=== PATIENT | male | born 1980 | race Caucasian/White ===

== ENCOUNTER 2017-07-21 07:32 | Emergency (ER) | payer BC ==
[2017-07-21 07:50] VITALS: BP 131/83
--- NOTE | 2017-07-21 08:39 | RAD ---
INDICATION: Chest tightness for 2 days. LEFT side pain. History of tobacco use. COMPARISON: No relevant prior exams available on [place] [facility] [place] [place]. TECHNIQUE: Dual energy PA and routine lateral views of the chest were obtained. REPORT: Clear lungs and pleural spaces. Negative for pneumothorax. The heart, pulmonary vasculature, and mediastinal contours are unremarkable. Unremarkable osseous structures and soft tissue contours. IMPRESSION: No evidence for acute intrathoracic disease.
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
[2017-07-21 14:06] LABS: Hematocrit 50 % (42-52); Hemoglobin 16.9 g/dl (14.0-18.0); Mean Corpuscular HGB Conc 34 g/dl (31-36); Mean Corpuscular Hemoglobin 31 pg (27-31); Mean Corpuscular Volume 92 fL (80-94); Mean Platelet Volume 9 um3 (7.4-10.4); Red Blood Count 5.45 10^6/ul (4.0-5.4); Red Cell Distribution Width 13 % (10.5-15); White Blood Count 12.1 10^3/ul (3.5-10.8)
[2017-07-21 14:27] LABS: Albumin 4.5 g/dL (3.2-5.2); BUN/Creatinine Ratio 9.8 (8-20); Calcium 9.5 mg/dL (8.6-10.3); EGFR African American 137.5 (>60); EGFR Non-African American 106.9 (>60); Globulin 2.7 g/dL (2-4); Potassium 4.8 mmol/L (3.5-5.0); Total Bilirubin 0.6 mg/dL (0.2-1.0); Total Protein 7.2 g/dL (6.4-8.9)
== END 2017-07-21 09:27 | disposition home or self-care (01) ==
LOC: UCCORT 07:32
DX: R07.89 Other chest pain (principal); R06.00 Dyspnea, unspecified; J34.89 Other specified disorders of nose and nasal sinuses; Z88.1 Allergy status to other antibiotic agents; F17.210 Nicotine dependence, cigarettes, uncomplicated
CPT/HCPCS: 36415; 71020; 80053; 85025; 85379; 93005; 99211; G0463

== ENCOUNTER 2018-08-10 07:42 | Emergency (ER) | payer BC ==
--- OUTSIDE RECORDS SUMMARY | 2018-08-10 07:59 | XMS REPORT ---
:1980 External Reference #:[id number] Author Organization [facility] Address [address], [address] [place] [address] Phone [phone] Care Team Providers Name Role Phone Claudia Granados Care Team Information Hot Box Spotter Unavailable Dusty Soriano MD Primary Care Physician Unavailable Payers Type Date Identification Numbers Payment Provider Subscriber Commercial Policy Number: [id number] August Muhammad Regard PayID: [id number] [address] [address] [place] [address] [facility] Policy Number: [id number] [employer] Manuel Muhammad Regard PayID: [id number] [address] [place] [address] Problems Date Description Provider Status Onset: 01/02/2018 Digestive symptom Eliud Gunter MD Active Onset: 04/10/2018 Gastro-esophageal reflux disease with Eliud Gunter MD Active esophagitis Onset: 04/10/2018 Duodenitis Eliud Gunter MD Active Onset: 04/06/2018 Pain in forearm Lauren Briones MD Active Onset: 04/06/2018 Pain in forearm Lauren Briones MD Active Onset: 03/18/2018 Skin sensation disturbance Susana Page M.D. Active Onset: 03/18/2018 Gastroduodenitis Susana Page M.D. Active Onset: 03/18/2018 Headache Susana Page M.D. Active Onset: 03/18/2018 Malaise and fatigue Susana Page M.D. 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 Work Status Currently Working Cigarette Use currently smokes 1/2 Pack Daily Cigarette Use Pack Years - 15 Smokeless Tobacco Never Used Smokeless Tobacco ETOH Use Currently consumes alcohol socially Smoking Patient is a current smoker, smokes every day Recreational Drug Use Denies Drug Use Daily Caffeine Consumes on average 2 cups of regular coffee per day Exercise Type/Frequency Exercises rarely Allergies, Adverse Reactions, Alerts Date Description Reaction Status Severity Comments 03/31/2012 Cipro flu-like symptoms active Severe Medications Medication Date Status Form Strength Qnty SIG Indications Ordering Provider Montelukast 07/30/ Active Tablets 10mg 90tabs take 1 J45.20 Kheti, Sodium 2018 tablet MD Cornelius daily. Azelastine HCL 07/30/ Active Solution 0.1% 30ml use 1 spray J30.89 Kheti, (Nasal) 2018 both MD Cornelius nostrils every day. Ibuprofen / Active Tablets 200mg 20tabs prn Unknown 0000 Excedrin / Active Tablets 250-250-65 prn Unknown Migraine 0000 mg Multivitamin / Active Tablets 1 by mouth Unknown Adult 0000 every day Allopurinol / Active Tablets 300mg 1 po daily Ring, 0000 MD Dusty Symbicort / Active Aerosol 160-4.5mcg 2 p bid Pieretti, 0000 /Act Claudia Proair HFA / Active Aerosol 108(90Base Inhale 1 -2 Unknown 0000 ) mcg/Act Puffs Every 4 To 6 HRS as Needed For Shortness Of Breath Omeprazole 04/10/ Hx Capsules 20mg 90caps 1 tab by K21.[address] mili Gunter MD day every morning Gabapentin 02/05/ Hx Capsules 300mg 14caps 1 tab by R10.10 Nelly, 2017 - mouth three Mahmoud, 03/18/ times a day M.D. 2017 as needed for pain Omeprazole 01/02/ Hx Capsules 20mg 90caps 1 tab by R10.10 Eliud 2017 - DR mili Gunter MD 02/04/ day every 2017 morning Zantac / Hx Tablets 150mg 1 po qd Unknown 0000 Vitamin D3 / Hx Tablets 2000Unit 1 po qd Unknown Super Strength 0000 Omeprazole / Hx Capsules 40mg 1 by mouth R10.[address] every day Omeprazole / Hx Capsules 40mg 1 by mouth R10.[address] every day Vital Signs Date Vital Result Comment 07/30/2018 BP Systolic Sitting Left Arm 128 mmHg BP Diastolic Sitting Left Arm 68 mmHg Heart Rate 88 /min Respiratory Rate 16 /min Height 73 inches 6'1" Weight 210.00 lb BMI (Body Mass Index) 27.7 kg/m2 BSA (Body Surface Area) 2.20 m2 [place] body weight in kilograms 83 O2 % BldC Oximetry 98 % 04/10/2018 BP Systolic Sitting Left Arm 122 mmHg BP Diastolic Sitting Left Arm 90 mmHg Heart Rate 54 /min Respiratory Rate 16 /min Height 73 inches 6'1" Weight 204.00 lb BMI (Body Mass Index) 26.9 kg/m2 BSA (Body Surface Area) 2.17 m2 [place] body weight in kilograms 83 03/18/2018 BP Systolic Sitting Left Arm 122 mmHg BP Diastolic Sitting Left Arm 79 mmHg Body Temperature 99.0 F Heart Rate 90 /min Height 73 inches 6'1" Weight 209.00 lb BMI (Body Mass Index) 27.6 kg/m2 BSA (Body Surface Area) 2.19 m2 [place] body weight in kilograms 83 02/05/2018 BP Systolic 124 mmHg BP Diastolic 75 mmHg Body Temperature 98.6 F Heart Rate 81 /min Respiratory Rate 18 /min Height 73 inches 6'1" Weight 215.00 lb BMI (Body Mass Index) 28.4 kg/m2 BSA (Body Surface Area) 2.22 m2 [place] body weight in kilograms 83 O2 % BldC Oximetry 98 % Pain Level 5 02/04/2018 BP Systolic Sitting Left Arm 78087 mmHg Heart Rate 72 /min Respiratory Rate 16 /min Height 73 inches 6'1" Weight 217.00 lb BMI (Body Mass Index) 28.6 kg/m2 BSA (Body Surface Area) 2.23 m2 [place] body weight in kilograms 83 01/28/2018 BP Systolic 120 mmHg BP Diastolic 78 mmHg Height 73 inches 6'1" Weight 216.00 lb BMI (Body Mass Index) 28.5 kg/m2 BSA (Body Surface Area) 2.22 m2 [place] body weight in kilograms 83 01/02/2018 BP Systolic Sitting Left Arm 130 mmHg BP Diastolic Sitting Left Arm 82 mmHg Heart Rate 90 /min Respiratory Rate 16 /min Height 73 inches 6'1" Weight 215.00 lb BMI (Body Mass Index) 28.4 kg/m2 BSA (Body Surface Area) 2.22 m2 [place] body weight in kilograms 83 04/01/2012 BP Systolic Sitting Left Arm 132 mmHg BP Diastolic Sitting Left Arm 88 mmHg Heart Rate 78 /min Height 73 inches 6'1" Weight 208.00 lb w clothes & shoes BMI (Body Mass Index) 27.4 kg/m2 Results Test Date Test Result H/L Range Note HIV Screen 4TH 03/18/2018 HIV Screen 4th Non Reactive Non Reactive 1, 2 Gen Reflex Generation wRfx CBS W/Automated 03/18/2018 White Blood Count 8.5 K/uL 3.4-10.5 1 Diff Red Blood Count 5.31 M/uL 4.20-5.80 1 Hemoglobin 16.5 gm/dL 12.8-17.0 1 Hematocrit 48.9 % High 38.0-48.0 1 Mean Cell Volume 92.1 fl 80.0-96.0 1 Mean Corpuscular HGB 31.1 pg 27.0-33.0 1 Mean Corpuscular HGB Conc 33.7 g/dL 31.7-36.0 1 Platelet Count 294 K/uL 155-360 1 Red Cell Distri Width SD 44.5 fl 36-51 1 Red Cell Distri Width %CV 13.4 % 11.6-15.8 1 Mean Platelet Volume 10.5 fL 6.6-10.6 1 Neut% 58.6 % 33.0-73.0 1 Lymph % 32.9 % 20.0-42.0 1 Ward % 6.9 % 0.0-10.0 1 Eo% 1.4 % 0.0-6.6 1 Bas% 0.2 % 0.0-1.1 1 Neut# 4.98 K/uL 1.8-7.0 1 Lymph # 2.80 K/uL 1.0-4.0 1 Ward # 0.59 K/uL 0.0-0.8 1 Eos # 0.12 K/uL 0.0-0.5 1 Baso # 0.02 K/uL 0.0-0.1 1 Comprehensive Metabolic Panel 03/18/2018 Glucose 98 mg/dL 74-106 1 BUN 12 mg/dL 7-18 1 Creatinine 0.9 mg/dL 0.6-1.3 1 Glom Filtration Rate, Estimate >60 mL/min >60 1 If >60 mL/min >60 1, 3 BUN/Creat 13.3 ratio 1 Sodium 141 mmol/L 136-145 1 Potassium 4.1 mmol/L 3.5-5.1 1 Chloride 111 mmol/L High 98-107 1 Carbon Dioxide 24 mmol/L 21-32 1 Anion Gap 6 mEq/L Low 8-16 1 Calcium 8.7 mg/dL 8.5-10.1 1 Total Protein 7.6 g/dL 6.4-8.2 1 Albumin 4.1 g/dL 3.4-5.0 1 Globulin 3.5 g/dL 1.9-4.3 1 Alb/Glob 1.2 ratio 1 Bilirubin,Total 0.2 mg/dL 0.2-1.0 1 Sgot/Ast 18 U/L 15-37 1 SGPT/Alt 32 U/L 12-78 1 Alkaline Phosphatase 60 U/L 45-117 1 Laboratory test 03/18/2018 Vitamin D,25-Hydroxy 20.3 ng/mL Low 30.0-100.0 1, 4 finding Glycohemoglobin A1c 03/18/2018 Glycohemoglobin (A1c) 5.7 % 4.2-6.3 1, 5 eAG 117 mg/dL 1 Systemic Lupus Erythem. Profil 03/18/2018 Ra Latex Turbid. <10.0 IU/mL 0.0-13.9 1 Anti-Dna Antibody ([place]) 1 IU/mL 0-9 1, 6 SM Antibody <0.2 AI 0.0-0.9 1 DISTRICT WILDLIFE MANAGER Antibody <0.2 AI 0.0-0.9 1 Sjogrens Antibodies (Ssa) <0.2 AI 0.0-0.9 1 Antichromatin Antibodies <0.2 AI 0.0-0.9 1 Sjogrens Antibodies (SSB) <0.2 AI 0.0-0.9 1 Babesia Microti Igg/M Abs,Ifa 03/18/2018 Babesia microti,IgG <1:10 Neg:<1 :10 1, 7 Babesia microti,IgM <1:10 Neg:<1:10 1 Laboratory test finding 03/18/2018 C-Reactive Protein,Quant < 2.9 mg/L < 3.0 1 Ehrlichia Antibody Panel 03/18/2018 E.chaffeenis IgG Titer Negative Neg:< 1:64 1 E.chaffeenis IgM Titer Negative Neg:<1:20 1, 8 Hge IgG Titer Negative Neg:<1:64 1, 9 Hge IgM Titer Negative Neg:<1:20 1, 10 Ebv Acute Infection Antibodies 03/18/2018 Ebv AB Vca,Igm <36.0 U/mL 0.0- 35.9 1, 11 Ebv Early Antigen AB, IgG 11.7 U/mL High 0.0-8.9 1, 12 Ebv AB Vca,Igg 149.0 U/mL High 0.0-17.9 1, 13 Ebv Nuclear Antigen AB, Igg >600.0 U/mL High 0.0-17.9 1, 14 Ebv Interpretation (SEE NOTE) 1, 15 Laboratory test finding 03/18/2018 Sedimentation Rate 4 mm/hr 0-15 1, 16 Antinuclear Antibodies, 03/18/2018 Antinuclear Antibodies, Positive . 1 , 17 Ifa Ifa Speckled Pattern 1:80 . 1 Note (SEE NOTE) 1, 18 Lyme AB/Western Blot 03/18/2018 Lyme Total AB/Reflex < 0.91 ISR 0.00- 0.90 1, 19 Reflex To WB Lyme Disease Antibody,QT,Igm < 0.80 index 0.00-0.79 1, 20 Rheumatoid Panel ([facility]) 03/18/2018 Uric Acid 5.2 mg/dL 3.5-7.2 1 Rheumatoid Factor Screen < 10.0 IU/mL 0.0-15.0 1 Laboratory test finding 03/18/2018 Treponema Antibody Negative Negative 1, 21 [place] Drugs Of Abuse-Urine 03/18/2018 Amphetamines (Urine) Negative 1 Screen 7 Barbiturates (Urine) Negative 1 Benzodiazepines (Urine) Negative 1 Cannabinoids (Urine) Negative 1 Cocaine Metabolite (Urine) Negative 1 Methadone (Urine) Negative 1 Opiates (Urine) Negative 1 Urine Cutoffs * 1, 22 Laboratory test finding 02/19/2018 D-Dimer, Quantitative < 0.27 ug/mL 23, 24 Comprehensive Metabolic 02/04/2018 Glucose 106 mg/dL 74-106 25 Panel BUN 13 mg/dL 7-18 25 Creatinine 0.7 mg/dL 0.6-1.3 25 Glom Filtration Rate, Estimate >60 mL/min >60 25 If >60 mL/min >60 25, 26 BUN/Creat 18.5 ratio 25 Sodium 142 mmol/L 136-145 25 Potassium 4.3 mmol/L 3.5-5.1 25 Chloride 110 mmol/L High 98-107 25 Carbon Dioxide 26 mmol/L 21-32 25 Anion Gap 6 mEq/L Low 8-16 25 Calcium 9.1 mg/dL 8.5-10.1 25 Total Protein 7.4 g/dL 6.4-8.2 25 Albumin 3.7 g/dL 3.4-5.0 25 Globulin 3.7 g/dL 1.9-4.3 25 Alb/Glob 1.0 ratio 25 Bilirubin,Total 0.2 mg/dL 0.2-1.0 25 Sgot/Ast 18 U/L 15-37 25 SGPT/Alt 36 U/L 12-78 25 Alkaline Phosphatase 57 U/L 45-117 25 Laboratory test finding 02/04/2018 Lipase 86 U/L 56-289 25 Amylase 58 U/L 25-115 25 D-Dimer, Quantitative < 0.27 ug/mL 25, 27 Porphobilinogen,QN,24HR 01/13/2018 Porphobilinogen,QN,Urine 1.0 mg/L 0.0- 2.0 25 Urine Porphobilinogen, 24HR (U) 1.5 mg/24hr 0.0-1.5 25, 28 Ala Delta, 24 Hour Urine 01/13/2018 Delta Ala 3.8 mg/L Undefined 25 Delta Ala 5.5 mg/24hr High 0.5-5.1 25, 29 Laboratory test 01/05/2018 Pancreatic Elastase > 500.0 ug/g >200 30, 31 finding (Pe-1) Campos Fibrosure 01/05/2018 Campos Fibrosis Score 0.08 0.00-0.21 30 Campos Fibrosis Stage (SEE NOTE) 30, 32 Campos Steatosis Score 0.62 High 0.00-0.30 30 Campos Steatosis Grade (SEE NOTE) 30, 33 Campos Score 0.50 0.25 30 Campos Grade (SEE NOTE) 30, 34 Height 73 Inches . 30 Weight Measured 215 LBS . 30 Pxlbq-8-Ntpiryotgiqor 176 mg/dL 110-276 30 Haptoglobin 108 mg/dL 34-200 30 Apolipoprotein A-1 112 mg/dL 101-178 30 Bilirubin,Total 0.1 mg/dL 0.0-1.2 30 GGT 40 IU/L 0-65 30 Alt (SGPT) 27 IU/L 0-55 30 Alt (Sgot) P5P 25 IU/L 0-40 30 Cholesterol,Total 215 mg/dL High 100-199 30 Glucose, Serum 109 mg/dL High 65-99 30 Triglycerides 196 mg/dL High 0-149 30 Campos Interpretations: (SEE NOTE) 30, 35 Fibrosis Scoring (SEE NOTE) 30, 36 Steatosis Grading (SEE NOTE) 30, 37 Campos Scoring (SEE NOTE) 30, 38 Campos Limitations (SEE NOTE) 30, 39 Campos Comment 2 (SEE NOTE) 30, 40 Height 73INCHES 30 Weight 215LB 30 C1 Esterase Inhibitor 01/05/2018 C1 Esterase Inhibitor 84 %meanno . 30, 41 Function Function Height 73INCHES 30 Weight 215LB 30 C1 Esterase Inhibitor 01/05/2018 C1 Esterase Inhibitor 29 mg/dL 21-39 30 Height 73INCHES 30 Weight 215LB 30 Complement C4, Serum 01/05/2018 Complement C4, Serum 28 mg/dL 14-44 30 Height 73INCHES 30 Weight 215LB 30 Ceruloplasmin 01/05/2018 Ceruloplasmin 25.6 mg/dL 16.0-31.0 30 Height 73INCHES 30 Weight 215LB 30 Laboratory test finding 01/05/2018 Hepatitis C Antibody 0.1 s/corat 0.0- 0.9 30, 42 Laboratory test finding 01/05/2018 Sedimentation Rate 5 mm/hr 0-15 30, 43 Celiac Disease Comp PNL 01/05/2018 Immunoglobulin A 250 mg/dL 90-386 30 Antigliadin Abs, IgG 4 units 0-19 30, 44 Antigliadin Abs, IgA 9 units 0-19 30, 45 Endomysial IgA Antibody Negative Negative 30 t-Transglutaminase IgA <2 U/mL 0-3 30, 46 t-Transglutaminase IgG <2 U/mL 0-5 30, 47 Height 73INCHES 30 Weight 215LB 30 TSH W/Free T4 RFX 01/05/2018 Thyroid Stim Hormone 1.04 uIU/mL 0.30-4.20 30 Reflex add FT4? Y 30 Culture Stool 01/05/2018 Stool Culture NO ENTERIC PATHO <SEE NOTE> 30, 48 . ................ <SEE NOTE> 30, 49 Note: INCLUDES TESTING <SEE NOTE> 30, 50 . PLESIOMONAS, CAM <SEE NOTE> 30, 51 . ................ <SEE NOTE> 30, 52 . YERSINIA AND VIB <SEE NOTE> 30, 53 . SHOULD BE REQUES <SEE NOTE> 30, 54 Shiga Toxin 1 Antigen SHIGA TOXIN 1 NO <SEE NOTE> 30, 55 Shiga Toxin 2 Antigen SHIGA TOXIN 2 NO <SEE NOTE> 30, 56 O&P Ova & Parasite 01/05/2018 Cryptosporidium Specific NEGATIVE FOR CRY 30, 57 Exam Ag <SEE NOTE> Giardia Specific Antigen NEGATIVE FOR SALLY <SEE NOTE> 30, 58 Stool Fecal Fat QL 01/05/2018 Fats, Neutral Normal . 30, 59 Fats, Total Normal . 30, 60 Triglycerides 01/05/2018 Triglycerides 198 mg/dL High <150 30, 61 Reflex add FT4? Y 30 Laboratory test finding 01/05/2018 Calprotectin, Fecal < 16 ug/g 0-120 30, 62 Urine Porphobilinogen 01/05/2018 Porphobilinogen,QN,Uri 1.8 mg/L 0.0-2.0 30 24HR QNT ne Porphobilinogen, 24HR (U) 3.1 mg/24hr High 0.0-1.5 30, 63 Laboratory test 01/05/2018 C. Difficile Toxin Negative for tox 30, 64 finding B By PCR <SEE NOTE> C-Reactive Protein 01/05/2018 C-Reactive 5.2 mg/L High <3.0 30 Protein,Quant Reflex add FT4? Y 30 Laboratory test finding 11/23/2017 Source: Urine, Clean Cat <See Note> 65 Urine Bilirubin - Dipstick Negative Negative 65 Urine Blood Negative Negative 65 Urine Clarity Clear Clear 65 Urine Color Yellow Yellow 65 Urine Glucose - Dipstick Negative mg/dL Negative 65 Urine Ketone Negative mg/dL Negative 65 Urine Leuk Esterase Negative Negative 65 Urine Nitrite - Dipstick Negative Negative 65 Urine PH 5.5 1 Low 6.5-7.5 65 Urine Protein - Dipstick Negative mg/dL Negative 65 Urine Specific Rienzi 1.010 1 1.010-1.030 65 Urine Urobilinogen - Dipstick 0.2 E.U./dL 0.2-1.0 65 Laboratory test finding 11/23/2017 Lipase 72 U/L 56-289 65 Carboxyhemoglobin 11/23/2017 Carboxyhemoglobin 3.9 % High 0.0-1.5 65 HGB O2 Sat 79.3 % Low 91.9-98.5 65 Methemoglobin 0.10 % 0.00-0.24 65 Total HGB 17.1 g/dL 13.5-18.0 65 Laboratory test finding 11/23/2017 Act Partial Thrombo Time 26.4 s 23.4- 35.0 65 CK 23 U/L Low 39-308 65 Troponin-I < 0.015 ng/mL 65 Slide Review 11/23/2017 Slide Review (See Note) 65 Protime 11/23/2017 Inr 1.1 1 0.9-1.1 65 Protime 14.2 s 12.0-14.4 65 Comprehensive Metabolic Panel 11/23/2017 Alb/Glob 1.2 ratio 65 Albumin 4.1 g/dL 3.4-5.0 65 Alkaline Phosphatase 59 U/L 45-117 65 Anion Gap 9 mEq/L 8-16 65 BUN 10 mg/dL 7-18 65 BUN/Creat 11.1 ratio 65, 66 Bilirubin,Total 0.4 mg/dL 0.2-1.0 65 Calcium 9.0 mg/dL 8.5-10.1 65 Carbon Dioxide 23 mmol/L 21-32 65 Chloride 106 mmol/L 98-107 65 Creatinine 0.9 mg/dL 0.6-1.3 65 Globulin 3.5 g/dL 1.9-4.3 65 Glom Filtration Rate, Estimate >60 mL/min >60 65 Glucose 105 mg/dL 74-106 65 If >60 mL/min >60 65 Potassium 3.5 mmol/L 3.5-5.1 65 SGPT/Alt 50 U/L 12-78 65 Sgot/Ast 23 U/L 15-37 65 Sodium 138 mmol/L 136-145 65 Total Protein 7.6 g/dL 6.4-8.2 65 CBS W/Automated Diff 11/23/2017 Bas% 0.2 % 0.0-1.1 65 Baso # 0.02 K/uL 0.0-0.1 65 Eo% 0.5 % 0.0-6.6 65 Eos # 0.06 K/uL 0.0-0.5 65 Hematocrit 47.5 % 38.0-48.0 65 Hemoglobin 17.0 gm/dL 12.8-17.0 65 Lymph # 2.65 K/uL 1.0-4.0 65 Lymph % 24.0 % 20.0-42.0 65 Mean Cell Volume 88.8 fl 80.0-96.0 65 Mean Corpuscular HGB 31.8 pg 27.0-33.0 65 Mean Corpuscular HGB Conc 35.8 g/dL 31.7-36.0 65 Mean Platelet Volume 10.3 fL 6.6-10.6 65 Ward # 0.79 K/uL 0.0-0.8 65 Ward % 7.2 % 0.0-10.0 65 Neut# 7.51 K/uL High 1.8-7.0 65 Neut% 68.1 % 33.0-73.0 65 Platelet Count 320 K/uL 155-360 65 Red Blood Count 5.35 M/uL 4.20-5.80 65 Red Cell Distri Width %CV 12.9 % 11.6-15.8 65 Red Cell Distri Width SD 41.4 fl 36-51 65 White Blood Count 11.0 K/uL High 3.4-10.5 65 Lipid Panel 11/10/2017 Cholesterol 212 mg/dL High <199 67 Cholesterol/HDL Ratio 6.2 CALC High <5.0 67 HDL Cholesterol 34 mg/dL Low >40 67 LDL Chol,Calculated 157 mg/dL High 0-100 67 Non-HDL Cholesterol 178 mg/dL High <130 67 Triglycerides 100 mg/dL <150 67, 68 Comp Metabolic Panel 11/10/2017 A/G Ratio 2.0 1 1.0-2.5 67 Albumin 4.6 g/dL 3.6-5.1 67 Alkaline Phosphatase 48 U/L 40-115 67 Alt 31 U/L 9-46 67 Ast 20 U/L 10-40 67 BUN/Creatinine Ratio 15.7 1 6-22 67 Bilirubin,Total 0.5 mg/dL 0.2-1.2 67 Calcium 9.5 mg/dL 8.6-10.3 67 Carbon Dioxide 25 mmol/L 20-31 67 Chloride 106 mmol/L 98-110 67 Creatinine 0.81 mg/dL 0.60-1.35 67 Egfr 133 ML/MIN/1.73M2 > Or=60 67 Egfr Non-Afr. Russian 114 ML/MIN/1.73M2 > Or=60 67 Globulin,Calculated 2.3 g/dL 1.9-3.7 67 Glucose 106 mg/dL High 65-99 67 Potassium 4.4 mmol/L 3.5-5.3 67 Protein,Total 6.9 g/dL 6.1-8.1 67 Sodium 138 mmol/L 135-146 67 Urea Nitrogen (BUN) 13 mg/dL 7-25 67, 69 CBC W/ Diff & PLT 11/10/2017 Anisocytosis Pending 67 Bands,% Pending 67 Bands,Absolute Pending 67 Basophilic Stippling Pending 67 Basophils,% 0 % 0-1 67 Basophils,Absolute 20 cells/uL 0-200 67 Blast Cells,Absolute Pending 67 Blasts,% Pending 67, 70 Comment Pending 67 Eosinophils,% 2 % 0-4 67 Eosinophils,Absolute 120 cells/uL 15-500 67 Hematocrit 48.0 % 38.5-50.0 67 Hemoglobin 16.0 g/dL 13.2-17.1 67 Hypochromasia Pending 67 Lymphocytes,Absolute 1950 cells/uL 850-3900 67 MCH 30.7 pg 27.0-33.0 67 MCHC 33.5 g/dL 32.0-36.0 67 MCV 91.9 FL 80.0-100.0 67 MPV 9.6 FL 7.5-12.5 67 Macrocytosis Pending 67 Metamyelocytes,% Pending 67 Metamyelocytes,Absolute Pending 67 Microcytosis Pending 67 Monocytes,% 6 % 4-12 67 Monocytes,Absolute 330 cells/uL 200-950 67 Myelocytes,% Pending 67 Myelocytes,Absolute Pending 67 Neutrophils,Absolute 3260 cells/uL 7606-1269 67 Nucleated RBC Pending 67 Nucleated RBC,Absolute Pending 67 Platelet Count 305 thous/uL 140-400 67 Platelet Sufficiency Pending 67 Poikilocytosis Pending 67 Polychromasia Pending 67 Promyelocytes,% Pending 67 Promyelocytes,Absolute Pending 67 RBC 5.22 mill/uL 4.20-5.80 67 RBC Morphology Pending 67 RDW 13.5 % 11.0-15.0 67 Target Cells Pending 67 Total Lymphocytes,% 34 % 12-47 67 Total Neutrophils,% 57 % 40-75 67 WBC 5.7 thous/uL 3.8-10.8 67 Laboratory test finding 11/10/2017 T4,Free 1.0 ng/dL 0.8-1.8 67 TSH 1.00 mIU/L 0.40-4.50 67 Uric Acid 5.2 mg/dL 4.0-8.0 67 Laboratory test finding 08/13/2017 Ward Screen (Heterophile) Negative Negative 71 CBC 04/09/2012 White Blood Count 8.1 K/uL 3.4-10.5 Red Blood Count 5.22 M/uL 4.20-5.80 Hemoglobin 15.9 gm/dL 12.8-17.0 Hematocrit 46.4 % 38.0-48.0 Mean Cell Volume 88.9 fl 80.0-96.0 Mean Corpuscular HGB 30.5 pg 27.0-33.0 Mean Corpuscular HGB Conc 34.3 g/dL 31.7-36.0 Platelet Count 267 K/uL 150-400 Red Cell Distri Width %CV 12.8 % 11.6-15.8 Mean Platelet Volume 11.0 fL High 6.6-10.6 Urine Screen 04/09/2012 Urine Color STRAW Yellow Urine Clarity CLEAR Clear Urine Glucose - Dipstick NEGATIVE mg/dL Negative Urine Bilirubin - Dipstick NEGATIVE Negative Urine Ketone NEGATIVE mg/dL Negative Urine Specific Rienzi <=1.005 Low 1.010-1.030 Urine Blood NEGATIVE Negative Urine PH 5.5 Low 6.5-7.5 Urine Protein - Dipstick NEGATIVE mg/dL Negative Urine Urobilinogen - Dipstick 0.2 E.U./dL 0.2-1.0 Urine Nitrite - Dipstick NEGATIVE Negative Urine Leuk Esterase NEGATIVE Negative 1 R53.83 OTHER FATIGUE 2 Performed at: RN - [facility] [id number] Automotive Service Cashier: Chata Tom MD, Phone: [phone] Note: Persistent reduction for 3 months or more in an eGFR <60 mL/min/1.73 m2 defines CKD. Patients with eGFR values >/=60 mL/min/1.73 m2 may also have CKD if evidence of persistent proteinuria is present. The original MDRD equation for estimated GFR is not valid for patients less than 18 years of age. Additional information may be found at www.kdoqi.org. 4 Vitamin D deficiency has been defined by the [place] [employer] and an Endocrine Society practice guideline as a level of serum 25-OH vitamin D less than 20 ng/mL (1,2). The Endocrine Society went on to further define vitamin D insufficiency as a level between 21 and 29 ng/mL (2). 1. IOM ([place] [employer]). 2010. Dietary reference intakes for calcium and D. [place]: The National Academies Press. 2. Mary MF, Blue HOGAN, Sharita LOVETT, et al. Evaluation, treatment, and prevention of vitamin D deficiency: an Endocrine Society clinical practice guideline. JCEM. 2010; 96(7):1911-30. Performed at: - [address] [id number] Autom[employer] Service Cashier: Chata Tom MD, Phone: [phone] 5 Elevated levels of HbA1c suggest the need for more aggressive treatment of glycemia. The [place] Diabetes Association recommends that a primary goal of therapy should be a HbA1c of <7% and that physicians should re-evaluate the treatment regimen in patients with HbA1c values consistently >8%. 6 Negative <5 Equivocal 5 - 9 Positive >9 7 This test was developed and its performance characteristics determined by [employer]. It has not been cleared or approved by the U.S. Food and Drug Administration. The FDA has determined that such clearance or approval is not necessary. This test is used for clinical purposes. It should not be regarded as investigational or research. 8 IgG titers if 1:64 or greater indicate exposure or acute and convalescent samples showing a four-fold increase, and/or the presence of IgM indicate recent or current infection. 9 HGE IgG levels are detectable 7 to 10 days post infection and persist approximately one year. 10 Due to a reagent backorder, this test was performed using a different assay. The reference interval for this alternate assay is: Negative <1:64 Positive 1:64 or greater IgM levels usually rise 3 to 5 days post infection and fall to normal levels in approximately 30 to 60 days. Performed at: [facility] [id number] Autom[employer] Cashier: Chata Tom MD, Phone: [phone] Performed at: [facility] [id number] Autom[employer] Service Cashier: Tariq Moore MD, Phone: [phone] 11 Negative <36.0 Equivocal 36.0 - 43.9 Positive >43.9 12 Hepatitis A, Hepatitis C and HIV antibodies may cross-react with this assay. Negative < 9.0 Equivocal 9.0 - 10.9 Positive >10.9 13 Negative <18.0 Equivocal 18.0 - 21.9 Positive >21.9 14 Negative <18.0 Equivocal 18.0 - 21.9 Positive >21.9 15 EBV Interpretation Chart Interpretation EBV-IgM EA(D)-IgG VCA-IgG EBNA-IgG EBV Seronegative - - - - Early Phase + - - - Acute Primary + +or- + - Infection Convalescence/Past - +or- + + Infection Reactivated +or- + + + Infection + Antibody Present - Antibody Absent 16 Method: Sediplast Modified Westergren 17 Negative <1:80 Borderline 1:80 Positive >1:80 18 A positive TISH result may occur in healthy individuals (low titer) or be associated with a variety of diseases. See interpretation chart which is not all inclusive: Pattern Antigen Detected Suggested Disease Association Homogeneous DNA(ds,ss), SLE - High titers Nucleosomes, Histones Drug-induced SLE Speckled Sm, DISTRICT WILDLIFE MANAGER, SCL-70, SLE,MCTD,PSS (diffuse form), SS-A/SS-B Sjogrens Nucleolar SCL-70, PM-1/SCL High titers Scleroderma, PM/DM Centromere Centromere PSS (limited form) w/Crest syndrome variable Nuclear Dot [id number] Primary Biliary Cirrhosis Nuclear GP210, Primary Biliary Cirrhosis Membrane viviana A,B,C 19 Negative <0.91 Equivocal 0.91 - 1.09 Positive >1.09 20 Negative <0.80 Equivocal 0.80 - 1.19 Positive >1.19 IgM levels may peak at 3-6 weeks post infection, then gradually decline. 21 Performed at: [address] [id number] Automotive Service Cashier: Tariq Moore MD, Phone: [phone] 22 URINE SPECIMENS ARE SCREENED AT THE LISTED CUTOFFS DRUG CLASS INITIAL TEST LEVEL Amphetamines 1000 ng/mL Barbiturates 200 ng/mL Benzodiazepines 200 ng/mL Cannabinoids 50 ng/mL Cocaine Metabolite 300 ng/mL Methadone 300 ng/mL Opiates 300 ng/mL Any PRESUMPTIVE POSITIVE findings are UNCONFIRMED. Confirmatory testing is suggested if findings are unexpected. Please contact laboratory if confirmatory testing is desired. SPECIMENS ARE HELD FOR 72 HOURS. 23 DIFFICULTY BREATHING 24 <=0.49 ug/mL - Low likelihood of DIC, DVT or Pulmonary Embolism >0.49 ug/mL - Additional testing should be done to rule out DIC, DVT, or Pulmonary embolism as clinically indicated. ([facility] has established a 97.89% negative predictive value for thrombotic disease when a cutoff value of 0.5 ug/mL is used.) 25 R10.10 26 Note: Persistent reduction for 3 months or more in an eGFR <60 mL/min/1.73 m2 defines CKD. Patients with eGFR values >/=60 mL/min/1.73 m2 may also have CKD if evidence of persistent proteinuria is present. The original MDRD equation for estimated GFR is not valid for patients less than 18 years of age. Additional information may be found at www.kdoqi.org. 27 <=0.49 ug/mL - Low likelihood of DIC, DVT or Pulmonary Embolism >0.49 ug/mL - Additional testing should be done to rule out DIC, DVT, or Pulmonary embolism as clinically indicated. ([facility] has established a 97.89% negative predictive value for thrombotic disease when a cutoff value of 0.5 ug/mL is used.) 28 This test was developed and its performance characteristics determined by [employer]. It has not been cleared or approved by the Food and Drug Administration. 29 This test was developed and its performance characteristics determined by [employer]. It has not been cleared or approved by the Food and Drug Administration. Performed at: [address] [id number] Automotive Service Cashier: Tariq Moore MD, Phone: [phone] 30 R19.4 R10.10 K76.0 31 INFCE Result Units: ug Elast./g Severe Pancreatic Insufficiency: <100 Moderate Pancreatic Insufficiency: 100 - 200 Normal: >200 32 F0 - No fibrosis 33 S2 - Moderate Steatosis 34 N1 - Borderline or probable CAMPOS 35 Quantitative results of 10 biochemicals in combination with age, gender, height, and weight, are analyzed using a computational algorithm to provide a quantitative surrogate marker (0.0-1.0) of liver fibrosis (Metavir F0-F4), hepatic steatosis (0.0-1.0, S0-S3), and Non-Alcoholic Steato- Hepatitis (CAMPOS) (0.0-0.75, N0-N2). The absence of steatosis (S<0.38) precludes the diagnosis of CAMPOS. Fibrosis marker: In a study of 171 Non-Alcoholic Fatty Liver Disease (NAFLD) patients where 23% had significant NAFLD fibrosis (Metavir F2-F4) and 11% had cirrhosis by liver biopsy, a fibrosis result of >0.3 yielded a sensitivity of 83% and a specificity of 78% for the detection of significant fibrosis(1). Steatosis Marker: In a population of 744 patients (583 HCV, 18 HBV, 69 NAFLD, and 74 alcoholic disease patients), where 36% had significant steatosis (>5%) on a liver biopsy, a steatosis score >0.5 had a sensitivity of 71% and a specificity of 72% for identification of significant steatosis(2). CAMPOS marker: In a population of 257 NAFLD patients, where 62% had at least some CAMPOS by liver biopsy, a prediction of CAMPOS had a sensitivity of 88% for identifying CAMPOS and a specificity of 50%(3). 36 <0.21=Stage F0 - No fibrosis 0.21 - 0.27=Stage F0 - F1 0.27 - 0.31=Stage F1 - Portal fibrosis 0.31 - 0.48=Stage F1 - F2 0.48 - 0.58=Stage F2 - Bridging fibrosis with few septa 0.58 - 0.72=Stage F3 - Bridging fibrosis with many septa 0.72 - 0.74=Stage F3 - F4 >0.74=Stage F4 - Cirrhosis 37 < 0.30=S0 - No Steatosis 0.30 to 0.38=S0 - S1 0.38 to 0.48=S1 - Minimal Steatosis 0.48 to 0.57=S1 - S2 0.57 to 0.67=S2 - Moderate Steatosis 0.67 to 0.69=S2 - S3 > 0.69=S3 - Marked or Severe Steatosis 38 0.25=N0 - Not CAMPOS 0.50=N1 - Borderline or probable CAMPOS 0.75=N2 - CAMPOS 39 CAMPOS FibroSure is recommended for patients with suspected non-alcoholic fatty liver disease. It is not recommended for patients with other liver diseases. It is also not recommended in patients with Gilbert Disease, acute hemolysis, acute viral hepatitis, drug induced hepatitis, genetic liver disease, autoimmune hepatitis and/or extra- hepatic cholestasis. Any of these clinical situations may lead to inaccurate quantitative predictions of fibrosis. Performed at: [address] [id number] Automotive Service Cashier: Chata Tom MD, Phone: [phone] Performed at: [address] [id number] Automotive Service Cashier: Tariq Moore MD, Phone: [phone] 40 This test was developed and its performance characteristics determined by [facility]. It has not been cleared or approved by the Food and Drug Administration. The FDA has determined that such clearance or approval is not necessary. For questions regarding this report please contact customer service at . References: 1. Mague Partida et al. Diagnostic Value of Biochemical Markers (FibroTest) for the prediction of Liver Fibrosis in patients with Non-Alcoholic Fatty Liver Disease. BMC Gastroenterology 2006; 6:6. 2. Lea Birmingham. et al. The Diagnostic Value of Biomarkers (Steato Test) for the Prediction of Liver Steatosis. Comparative Hepatol. 2005; 4:10. 3. Lea Birmingham, Jojo Bowser, et al. Diagnostic value of biochemical markers (CAMPOS TEST) for the prediction of non alcohol steato hepatitis in patients with non- alcoholic fatty liver disease. BMC Gastroenterology 2006; 6:34 doi:10.1186/4208-024V-0-34. 41 INFCE Result Units: %mean normal Abnormal <41 Equivocal 41 - 67 Normal >67 42 INFCE Result Units: s/co ratio Negative: < 0.8 Indeterminate: 0.8 - 0.9 Positive: > 0.9 The CDC recommends that a positive HCV antibody result be followed up with a HCV Nucleic Acid Amplification test (134066). Performed at: [address] [id number] Automotive Service Cashier: Chata Tom MD, Phone: [phone] 43 Method: Sediplast Modified Westergren 44 Negative 0 - 19 Weak Positive 20 - 30 Moderate to Strong Positive >30 45 Negative 0 - 19 Weak Positive 20 - 30 Moderate to Strong Positive >30 46 Negative 0 - 3 Weak Positive 4 - 10 Positive >10 Tissue Transglutaminase (tTG) has been identified as the endomysial antigen. Studies have demonstr- ated that endomysial IgA antibodies have over 99% specificity for gluten sensitive enteropathy. 47 Negative 0 - 5 Weak Positive 6 - 9 Positive >9 48 NO ENTERIC PATHOGENS ISOLATED 49 ................................................... 50 INCLUDES TESTING FOR SALMONELLA, SHIGELLA, AEROMONAS, 51 PLESIOMONAS, CAMPYLOBACTER, AND E. COLI 0157:H7 52 ................................................... 53 YERSINIA AND VIBRIO ARE NOT ROUTINELY SCREENED FOR AND 54 SHOULD BE REQUESTED SEPARATELY 55 SHIGA TOXIN 1 NOT DETECTED 56 SHIGA TOXIN 2 NOT DETECTED Method: ImmunoCard STAT/EHEC Rapid Immunochromatographic Assay 57 NEGATIVE FOR CRYPTOSPORIDIUM SPECIFIC ANTIGEN 58 NEGATIVE FOR GIARDIA SPECIFIC ANTIGEN. The specimen will be held for 5 days. Additional testing may be performed upon request if the antigen tests are negative, and the patient is still symptomatic or has traveled to an endemic region. Method: Alere Quik Chek Rapid Membrane Enzyme Immunoassay 59 Normal (<60 Droplets/HPF) 60 Normal (<100 Droplets/HPF) 61 Reference Guidelines*: Normal: ............. < 150 mg/dL Borderline High: .... 150-199 mg/dL High: ............... 200-499 mg/dL Very High: .......... > 500 mg/dL * Source: National Cholesterol Education Program (NCEP) 62 Concentration Interpretation Follow-Up <16 - 50 ug/g Normal None >50 -120 ug/g Borderline Re-evaluate in 4-6 weeks >120 ug/g Abnormal Repeat as clinically indicated Performed at: [place] [facility] [address] [id number] Automotive Service Cashier: Chata Tom MD, Phone: [phone] Performed at: [address] [id number] Automotive Service Cashier: Tariq Moore MD, Phone: [phone] 63 This test was developed and its performance characteristics determined by [employer]. It has not been cleared or approved by the Food and Drug Administration. 64 Negative for toxigenic C. difficile by PCR 65 LIGHTHEADED, L LEG NUMBNESS, DIZZY 66 Note: Persistent reduction for 3 months or more in an eGFR <60 mL/min/1.73 m2 defines CKD. Patients with eGFR values >/=60 mL/min/1.73 m2 may also have CKD if evidence of persistent proteinuria is present. The original MDRD equation for estimated GFR is not valid for patients less than 18 years of age. Additional information may be found at www.kdoqi.org. 67 PATIENT HAD 2 CUPS OF COFFEE WITH SUGAR 68 LDL-C is now calculated using the Maco-Eveline calculation, which is a validated novel method providing better accuracy than the Friedewald equation in the estimation of LDL-C. Maco KIRK et al.VENTURA.2013;310(19):5305-6281 (http://education.RobotsAlive.BrieFix/faq/ZLQ869) Desirable range <100 mg/dL for patients with CHD or Diabetes and <70 mg/dL for Diabetic patients with known heart disease 69 GLUCOSE REFERENCE RANGE BASED ON FASTING SPECIMEN. 70 Relative blood cell counts (%) should be compared with absolute cell counts (cells/mcL). Relative counts may not be clinically meaningful if the absolute count of one or more cell type is decreased. Reference ranges for relative cell counts derived from: A Manual of Laboratory and Diagnostics Tests, 9th Ed, Gerard Anthony & Albrecht, 2015. Pediatric Reference Intervals, 7th Ed, [employer], 2011. 71 R59.0,R51,J32.9 Procedures Date CPT Code Description Status 04/06/2018 75894 Nerve Conduction 3-4 Studies Completed 04/06/2018 40250 Needle Electromyography Complete, Five Or More Muscles Completed Studied 03/05/2018 49103 EGD With Biopsy Completed 05/12/2014 26106 Anesthesia Head Neck Posterior Trunk Integumentary Completed Unspec 04/10/2012 Wound exploration extremity-trauma Completed 04/10/2012 50160 Anesthesia, Integumentary, Chest Anterior, Unspec Completed Encounters Type Date Location Provider CPT E/M Dx Office Visit 04/10/2018 4:[place] [address] R10.10 K21.0 K29.70 K29.80 K76.0 Office Visit 03/18/2018 2:00p Physical Medicine & Susana Page M.D. 58847 R53.83 Infectious Disease R51 K29.70 R20.0 Office Visit 02/05/2018 9:00a Urology Lea Villegas M.D. 58744 R10.10 Office Visit 02/04/2018 8:00[place] [address] R10.10 R19.4 K76.0 Office Visit 01/28/2018 11:00a Surgical Office Van Baca MD,FACS 15571 R10.10 Office Visit 01/02/2018 1:00[place] [address] R19.4 R10.10 K76.0 Office Visit 04/22/2012 3:20p [place] [address] V67.09 Office Visit 04/01/2012 9:40a [place] [address] 360.69 Plan of Care Future Appointment(s):09/29/2018 4:00 pm - Cornelius Martinez MD at [facility]/27 /2018 - Cornelius Martinez MDJ45.20 Mild intermittent asthma, uncomplicatedNew Medication:Montelukast Sodium 10 mgNew Orders:PFT With BronchodilatorComments:I am checking full PFTs. On going symptoms are likely secondary to smoking and allergen expsoure. I discussed that he should not have any pets. Start singulair. Continue Symbicort 160 mcg 2 puffs twicea day and as needed albuterol. May benefit from a spacer, script will be sent to [facility].Follow up:2 months.J30.89 Other allergic rhinitisNew Medication:Azelastine HCL (Nasal) 0.1 % Comments:Start Azelastine.F17.210 Nicotine dependence, cigarettes, uncomplicatedComments:Counseled regarding smoking cessation. Discussed risks of cancer, heart attacks, and strokes associated with tobacco use.Z71.6 Tobacco abuse counselingComments:Counseled for 10 minutes.
--- OUTSIDE RECORDS SUMMARY | 2018-08-10 07:59 | XMS REPORT | Continuity of Care Document ---
:1980 External Reference #:[id number] Author Name Georgi Newell M.D. Address [address] [place] [address] Care Team Providers Name Role Phone Hilda Cohen MD Care Team Information Review Assistant Unavailable Dusty Soriano M.D. Primary Care Physician Unavailable Payers Type Date Identification Numbers Payment Provider Subscriber Policy Number: [id number] [facility] Manuel Jacques PayID: [id number] [address] [address] [place] [address] Advance Directives Description No Information Available Problems Date Description Provider Status Onset: 07/28/2018 Obstructive sleep apnea syndrome Georgi Newell M.D. Active Onset: 07/28/2018 Thinking about stopping smoking Georgi Newell M.D. 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 [employer] Cigarette Use Current cigarette smoker, has smoked 5-10 cigarettes a day for the past 10 years Cigars Current cigar smoker, smokes an occasional cigar Pipe Has never smoked a pipe Smokeless Tobacco Has never used smokeless tobacco Alcohol Drinks alcohol occasionally Tobacco Use Start: Unknown Patient is a current smoker, smokes every day Smoking Status Reviewed: 07/28/18 Patient is a current smoker, smokes every day Allergies, Adverse Reactions, Alerts Date Description Reaction Status Severity Comments 09/28/2007 Cipro Active Medications Medication Date Status Form Strength Qnty SIG Indications Ordering Provider Alprazolam Active Tablets 0.25mg 1/2 tab as Unknown 000 needed Symbicort Active Aerosol 160-4.5mcg/ as Pieretti, 000 Act directed Claudia John Allopurinol Active Tablets 300mg 1 tab Ring, Elyn 000 nightly M.DReji Proair HFA Active Aerosol 108(90Base) as needed Unknown 000 mcg/Act Axert Hx Tablets 12.5mg 30tabs 1 PO prn Georgi Fisher - Headache, Strominger March Repeat , John 018 In 2 Hours If Needed Prednisone Hx Tablets 10mg 1Course 40 mg for 471.8 Georgi Atkins 007 - 7 days, Strominger then 20 mg , M.DReji 018 for 4 days, then 10 mg for 4 days, then 5 mg for 4 days with food. Omnicef Hx Capsules 300mg 10Days 2 po qd 471.8 Georgi Atkins 007 - Strominger John 018 Lortab 5 Hx Tablets 30tabs 1-2 po q4h 471.8 Georgi Atkins 007 - prn pain Strominger , John 018 None Hx Unknown 000 - 018 Immunizations Description No Information Available Vital Signs Date Vital Result Comment 07/28/2018 8:23am Weight 208.00 lb Weight 94.349 kg Height 73 inches 6'1" Height in cm's 185.4 cm BMI (Body Mass Index) 27.4 kg/m2 05/26/2018 3:01pm Weight 209.00 lb Weight 94.802 kg Height 73 inches 6'1" Height in cm's 185.4 cm BMI (Body Mass Index) 27.6 kg/m2 Neck Circumference in inches 15.0 Neck Circumference in cm 38.1 cm 10/15/2007 9:20am BP Systolic 102 mmHg BP Diastolic 65 mmHg Heart Rate 88 /min Respiratory Rate 15 /min 09/28/2007 1:58pm BP Systolic 144 mmHg BP Diastolic 77 mmHg Heart Rate 85 /min Respiratory Rate 15 /min Results Description No Information Available Procedures Date Code Description Status 07/28/2018 38167 Nasal Endoscopy, Diagnostic Completed 11/24/2007 57406 No Show Fee Completed 10/15/2007 69366 Endoscopy Nasal/Sinus Max Sinusco Completed 10/09/2007 34993 Nasal Endoscopy W/Maxllary Antrostomy W/Excision Of Poylp Completed 09/28/2007 04963 Nasal Endoscopy, Diagnostic Completed Encounters Type Date Location Provider Dx Diagnosis Office Visit 07/28/2018 [place] Georgi Atkins G47.33 Obstructive sleep 8:30a 11/03/07 John Newell apnea (adult) (pediatric) J33.8 Other polyp of sinus Z72.0 Tobacco use Office Visit 05/26/2018 [place] Georgi Atkins R06.02 Shortness of 2:45p 11/03/07 John Newell breath Z72.0 Tobacco use G47.33 Obstructive sleep apnea (adult) (pediatric) R42 Dizziness and giddiness K21.0 Gastro-esophageal reflux disease with esophagitis Office Visit 09/28/2007 2:45p [place] Georgi Atkins 784.0 Headache Or 11/03/07 John Newell Facial Pain 471.8 Polyps, Nasal/Sinus Plan of Treatment 07/28/2018 - Georgi Newell M.D.G47.33 Obstructive sleep apnea (adult) ( pediatric)Comments:The patient returned today after his sleep study for VERA. He has mild VERA with an overall AHI of 6.7. But his AHI in the supine position was over 15. The recommendations from Dr. Cohen were better sleep hygiene, weight loss, and to sleep in the lateral position. However, she also thought that the study might be underestimating his VERA and given his symptoms I think a trial of CPAP would be warranted to see if this helps. He has failed other medical management for his SOB and I am unsure exactly the cause. I do know he MUST QUIT SMOKING. If he dos do well with the CPAP his options will be to continue with this therapy. I also think he would be a candidate for tonsillectomy and lateral expansion pharyngoplasty if he does well with the CPAP and does not want to use it long-term He will FU with me90 days after starting CPAP.J33.8 Other polyp of sinusComments:There is no evidence of recurrence of his polyps on endoscopy.Z72.0 Tobacco useComments:We discussed the long-term risks of smoking including, cancer, COPD, peripheral artery disease and coronary artery disease.
[2018-08-10 08:15] VITALS: BP 122/72
--- NOTE | 2018-08-10 08:54 | ED ---
Respiratory - HPI Summary HPI Summary: complaining of sore throat and mild cough . hx. of asthma, using symbicort and albuterol. not having daily wheezing, denies fever but felt warm - History of Current Complaint Chief Complaint: UCRespiratory Stated Complaint: SORE THROAT,CHEST CONGESTION Time Seen by Provider: 08/10/18 08:21 Hx Obtained From: Patient Onset/Duration: Gradual Onset, Lasting Days Initial Severity: Mild Current Severity: Mild Pain Intensity: 6 Sputum Amount: None Aggravating Factor(s): Nothing Alleviating Factor(s): Nothing Associated Signs and Symptoms: Negative - Risk Factors Status Asthmaticus Risk Factors: Negative Pulmonary Embolism Risk Factors: Negative Cardiac Risk Factors: Negative Pseudomonas Risk Factors: Negative Tuberculosis Risk Factors: Negative - Allergy/Home Medications Allergies/Adverse Reactions: Allergies Allergy/AdvReac Type Severity Reaction Status Date / Time ciprofloxacin [From Cipro] Allergy Anxiety Verified 08/10/18 08:07 environmental Allergy Congestion Uncoded 07/21/17 07:41 Home Medications: Home Medications Albuterol HFA INHALER* [Ventolin HFA Inhaler*] 1 - 2 puff INH Q4H PRN 08/10/18 [ History Confirmed 08/10/18] Allopurinol TAB* [Zyloprim 300 MG TAB*] 300 mg PO DAILY 08/10/18 [History Confirmed 08/10/18] Budesonide/Formote 160/4.5(NF) [Symbicort 160/4.5 (NF)] 2 puff INH BID 08/10/18 [History Confirmed 08/10/18] Dm/P-Ephed/Acetaminoph/Doxylam [Consuelo Manson Plus Severe 10-12.5-20-650 mg] 1 pow PO DAILY PRN 08/10/18 [History Confirmed 08/10/18] Ibuprofen TAB* [Advil TAB*] 400 mg PO Q6H PRN 08/10/18 [History Confirmed ] PMH/Surg Hx/FS Hx/Imm Hx Previously Healthy: Yes Endocrine/Hematology History: Denies: Hx Diabetes Cardiovascular History: Denies: Hx Hypertension, Hx Pacemaker/ICD History: Denies: Hx Renal Disease Sensory History: Denies: Hx Hearing Aid Psychiatric History: Denies: Hx Panic Disorder - Surgical History Surgery Procedure, Year, and Place: DEVIATED SEPTUM. SINUS POLYPS REMOVED x 3, last sinus surgery was end of 04/2017. LIPOMA- REMOVED IN NECK. BB REMOVED FROM HAND Infectious Disease History: No Infectious Disease History: Denies: Traveled Outside the [place] in Last 30 Days - Family History Known Family History: Positive: None Negative: Diabetes - Social History Alcohol Use: Occasionally Substance Use Type: Reports: None Hx Tobacco Use: Yes Smoking Status (MU): Heavy Every Day Tobacco Smoker Type: Cigarettes Amount Used/How Often: 1/2 pack daily Review of Systems Constitutional: Negative Eyes: Negative Positive: Sore Throat Cardiovascular: Negative Positive: Cough Gastrointestinal: Negative Genitourinary: Negative Musculoskeletal: Negative Skin: Negative Neurological: Negative All Other Systems Reviewed And Are Negative: Yes Physical Exam Triage Information Reviewed: Yes Vital Signs On Initial Exam: Initial Vitals Temp Pulse Resp BP Pulse Ox 36.7 C 74 18 122/72 98 08/10/18 08:10 08/10/18 08:10 08/10/18 08:10 08/10/18 08:10 08/10/18 08:10 Vital Signs Reviewed: Yes Appearance: Positive: Well-Appearing Skin: Positive: Warm, Dry Eyes: Positive: Normal ENT: Positive: Other - mild tonsillar erythema Neck: Positive: Supple Respiratory/Lung Sounds: Positive: Clear to Auscultation Cardiovascular: Positive: Normal Abdomen Description: Positive: Nontender Diagnostics - Vital Signs Vital Signs Temp Pulse Resp BP Pulse Ox 08/10/18 08:10 36.7 C 74 18 122/72 98 - Laboratory Lab Results: Lab Results 08/10/18 Range/Units 08:33 Group A Strep Rapid Negative (Negative) Lab Statement: Any lab studies that have been ordered have been reviewed, and results considered in the medical decision making process. Disposition - Diagnoses Provider Diagnoses: Viral pharyngitis, Exacerbation of asthma Discharge - Sign-Out/Discharge Documenting (check all that apply): Patient Departure All imaging exams completed and their final reports reviewed: Yes - Discharge Plan Condition: Good Disposition: HOME Prescriptions: Montelukast Sodium TAB* [Singulair 10 MG TAB*] 10 mg PO DAILY #30 tab Patient Education Materials: Asthma (DC), Viral Syndrome (ED) Referrals: Dusty Soriano MD [Primary Care Provider] - - Billing Disposition and Condition Condition: GOOD Disposition: Home
== END 2018-08-10 09:23 | disposition home or self-care (01) ==
LOC: UCCORT 07:42
DX: J02.8 Acute pharyngitis due to other specified organisms (principal); J45.901 Unspecified asthma with (acute) exacerbation; Z88.1 Allergy status to other antibiotic agents; F17.210 Nicotine dependence, cigarettes, uncomplicated
CPT/HCPCS: 87651; 99212; G0463